=== PATIENT | male | born 1965 | race Caucasian/White ===

== ENCOUNTER → 2018-10-07 | Outpatient (CLI) | payer OTHER ==
[2018-10-07 13:07] LABS: BASO # 0.1 10^3/uL (0.0-0.2); BASO % 0.8 % (0.0-1.0); EOS # 0.2 10^3/uL (0.0-0.50); EOS % 2.6 % (0.0-3.0); HEMATOCRIT 44.1 % (42.0-52.0); HEMOGLOBIN 14.9 g/dl (13.5-17.5); LYMPH # 2.1 10^3/uL (1.5-4.5); LYMPH % 24.3 % (24.0-44.0); MEAN CORPUSCULAR HEMOGLOBIN 30.8 pg (27.0-33.0); MEAN CORPUSCULAR HGB CONC 33.8 g/dl (32.0-36.5); MEAN CORPUSCULAR VOLUME 91.3 fl (80.0-96.0); MONO # 0.6 10^3/uL (0.0-0.8); MONO % 7.4 % (0.0-5.0); NEUTROPHILS # 5.5 10^3/uL (1.8-7.7); NEUTROPHILS % 64.5 % (36.0-66.0); PLATELET COUNT, AUTOMATED 256 10^3/uL (150-450); RED BLOOD COUNT 4.83 10^6/uL (4.30-6.10); WHITE BLOOD COUNT 8.6 10^3/uL (4.0-10.0)
[2018-10-07 13:18] LABS: ALBUMIN 4.1 GM/DL (3.2-5.2); ALT/SGPT 29 U/L (12-78); BILIRUBIN,TOTAL 0.3 MG/DL (0.2-1.0); BLOOD UREA NITROGEN 17 MG/DL (7-18); CALCIUM LEVEL 8.7 MG/DL (8.5-10.1); CARBON DIOXIDE LEVEL 27 MEQ/L (21-32); CHLORIDE LEVEL 106 MEQ/L (98-107); CHOLESTEROL LEVEL 200 MG/DL (<200); CHOLESTEROL RISK RATIO 4.347 (<5); GLOMERULAR FILTRATION RATE > 60.0 (>56); GLUCOSE, FASTING 103 MG/DL (70-100); HDL CHOLESTEROL 46 MG/DL (>40); LDL CHOLESTEROL 134 MG/DL (<100); NON-HDL-C 154 MG/DL; POTASSIUM SERUM 4.4 MEQ/L (3.5-5.1); SODIUM LEVEL 139 MEQ/L (136-145); TOTAL PROTEIN 7.3 GM/DL (6.4-8.2); TRIGLYCERIDES LEVEL 100 MG/DL (<150)
[2018-10-07 14:06] LABS: HEMOGLOBIN A1c 6.1 %
== END ==
LOC: M WUC 09:05
PROVIDERS: ATTEND Nurse Practitioner Adult Health
DX: E78.00 Pure hypercholesterolemia, unspecified (principal)

== ENCOUNTER → 2019-08-22 | Outpatient (CLI) | payer OTHER ==
--- NOTE | 2019-08-23 07:05 | REP ---
HISTORY: Contusion left upper inner buttock region. Multiple ultrasonographic images over the clinically directed area of interest in the left inner upper buttock region shows an 8.8 x 2 x 10.7 cm size nearly completely anechoic structure, but with some low level echoes within it and seemingly between muscle fascial planes. This is somewhat compressible. IMPRESSION: Fluid collection, possible hematoma or developing hematoma as described above. Correlate clinically with appropriate followup. Electronically Signed by Armen Dempsey DO 08/23/2019 09:20 A
== END ==
LOC: M RAD 16:27
PROVIDERS: ATTEND Nurse Practitioner Adult Health
DX: S30.0XXD Contusion of lower back and pelvis, subsequent encounter (principal); X58.XXXD Exposure to other specified factors, subsequent encounter; Y92.9 Unspecified place or not applicable

== ENCOUNTER → 2020-02-02 | Outpatient (CLI) | payer OTHER ==
--- NOTE | 2020-02-03 03:16 | REP ---
Clinical: Lower back pain. Technique: AP, lateral, bilateral oblique and coned-down views of the lumbosacral spine. Findings: Mild chronic levoconvex scoliosis is suggested along with marginal primarily right-sided osteophytosis. Lateral view demonstrates normal alignment and no evidence for acute fracture / compression injury or subluxation. Moderate/early advanced multilevel degenerative changes include endplate sclerosis, disc space narrowing, osteophytosis and hypertrophic facet changes. Findings are most pronounced at L4-5, L5-S1, and L2-3. No obvious spondylolysis or spondylolisthesis. Impression: Moderate multilevel degenerative spondylosis. Electronically Signed by Gucci Johns MD 02/03/2020 03:09 A
--- NOTE | 2020-02-03 04:04 | REP ---
Clinical: Chest and back pain . Comparison: 12/24/2015 . Technique: PA and lateral. Findings: The mediastinum and cardiac silhouette are normal. The lung casas are clear and without acute consolidation, effusion, or pneumothorax. The skeletal structures are intact and normal. Impression: 1. No acute cardiopulmonary process. Electronically Signed by Gucci Johns MD 02/03/2020 03:55 A
--- NOTE | 2020-02-03 04:04 | REP ---
Clinical: thoracic back pain. Technique: AP, lateral, and swimmers views. Findings: Alignment and kyphosis is maintained. Vertebral bodies intact. No acute fracture / compression injury or subluxation. Scattered anterior/marginal bridging osteophytes noted. Impression: Essentially age-appropriate examination. Few scattered osteophytes noted. Electronically Signed by Gucci Johns MD 02/03/2020 03:57 A
== END ==
LOC: M RAD 10:33
PROVIDERS: ATTEND Nurse Practitioner Adult Health
DX: M47.817 Spondylosis without myelopathy or radiculopathy, lumbosacral region (principal); M25.78 Osteophyte, vertebrae; M51.37 Other intervertebral disc degeneration, lumbosacral region; R07.89 Other chest pain; G57.12 Meralgia paresthetica, left lower limb

== ENCOUNTER 2020-05-17 08:40 | Emergency (ER) | payer OTHER ==
[2020-05-18] MEDS ORDERED: GABA-843 PO (20:07)
[2020-05-18] MEDS ORDERED: NAPR-855 PO (20:07)
== END 2020-05-17 10:59 | disposition home or self-care (01) ==
LOC: M ED 08:40
DX: S93.401A Sprain of unspecified ligament of right ankle, initial encounter (principal); W22.8XXA Striking against or struck by other objects, initial encounter; Y92.89 Other specified places as the place of occurrence of the external cause; Y93.9 Activity, unspecified; Y99.9 Unspecified external cause status; E11.9 Type 2 diabetes mellitus without complications; M54.5 Low back pain; F17.200 Nicotine dependence, unspecified, uncomplicated; Z79.899 Other long term (current) drug therapy

== ENCOUNTER 2020-05-18 16:45 | Inpatient (IN) | payer OTHER ==
[~2020-05-18] VITALS: Ht 195.6 cm; Wt 113.0 kg
[~2020-05-18 16:45] MED LIST: ACETAMINOPHEN 500 MG TAB As Ordered ONE; VANCOMYCIN 1000MG/20ML VIAL As Ordered ONE
[2020-05-18] MEDS ORDERED: ONDANSETRON 4MG/2ML VIAL IV PRN (20:00)
[2020-05-18] MEDS ORDERED: GABA-843 PO ×2 (20:07)
[2020-05-18] MEDS ORDERED: NAPR-855 PO (20:07)
[2020-05-18] MEDS ORDERED: cefTRIAXone SOD 2 GM in D5W MINI-BAG PLUS 50 ML IV SCH (21:00)
[2020-05-18] MEDS: ACETAMINOPHEN 500 MG TAB PO PRN (21:11)
[2020-05-18] MEDS: NS 1,000 ML IV SCH (21:11)
[2020-05-18] MEDS: GABAPENTIN 300 MG CAP PO SCH (21:12)
[2020-05-18 22:00] VITALS: BP 128/74
[2020-05-19] MEDS: VANCOMYCIN HCL 1,000 MG, VIAL MATE ADAPTER 1 EACH in D5W 250 ML IV SCH ×2 (04:15→15:46)
[2020-05-19 06:00] VITALS: BP 125/76
[2020-05-19] MEDS: NS 1,000 ML IV SCH ×2 (06:00→19:30)
[2020-05-19 07:02] LABS: BASO % 0.2 % (0.0-1.0); EOS # 0.1 10^3/uL (0.0-0.5); EOS % 0.3 % (0.0-3.0); HEMATOCRIT 37.1 % (42.0-52.0); HEMOGLOBIN 12.5 g/dl (13.5-17.5); LYMPH # 1.1 10^3/uL (1.5-5.0); LYMPH % 4.9 % (24.0-44.0); MEAN CORPUSCULAR HEMOGLOBIN 31.7 pg (27.0-33.0); MEAN CORPUSCULAR HGB CONC 33.7 g/dl (32.0-36.5); MEAN CORPUSCULAR VOLUME 94.2 fl (80.0-96.0); MONO # 1.4 10^3/uL (0.0-0.8); NEUTROPHILS # 20.3 10^3/uL (1.5-8.5); NEUTROPHILS % 87.4 % (36.0-66.0); PLATELET COUNT, AUTOMATED 182 10^3/uL (150-450); RED BLOOD COUNT 3.94 10^6/uL (4.30-6.10); WHITE BLOOD COUNT 23.2 10^3/uL (4.0-10.0)
[2020-05-19 07:27] LABS: BLOOD UREA NITROGEN 14 MG/DL (7-18); CALCIUM LEVEL 8.3 MG/DL (8.5-10.1); CARBON DIOXIDE LEVEL 26 MEQ/L (21-32); CHLORIDE LEVEL 103 MEQ/L (98-107); CREATININE FOR GFR 1.03 MG/DL (0.70-1.30); GLOMERULAR FILTRATION RATE > 60.0 (>56); GLUCOSE, FASTING 132 MG/DL (70-100); POTASSIUM SERUM 3.7 MEQ/L (3.5-5.1); SODIUM LEVEL 135 MEQ/L (136-145)
[2020-05-19] MEDS: ENOXAPARIN 40MG/0.4ML SYRINGE (J1650 PER 10MG) SC SCH (08:28)
[2020-05-19] MEDS: GABAPENTIN 300 MG CAP PO SCH ×2 (08:28→19:30)
[2020-05-19] MEDS: KETOROLAC 30 MG/ML 1ML VIAL IV PRN ×2 (08:29→17:53)
[2020-05-19 14:00] VITALS: BP 136/83
[2020-05-19] MEDS: ACETAMINOPHEN 500 MG TAB PO PRN (15:46)
--- NOTE | 2020-05-19 16:16 | IPNPDOC ---
Subjective Date Seen The patient was seen on 05/19/20. Subjective Chief Complaint/HPI right leg pain General: Reports: Normal Appetite; Denies: Chills, Night Sweats, Fatigue, Malaise Constitutional: Denies: Chills, Fever, Night Sweats Eyes: Denies: Pain, Vision change ENT: Denies: Head Aches, Ear Pain, Dysphagia Skin: Denies: Rash, Lesions, Breakdown Pulmonary: Denies: Dyspnea, Cough Cardiovascular: Denies: Chest Pain, Palpitations, Orthopnea, Paroxysmal Noc. Dyspnea, Lt Headedness Gastrointestinal: Denies: Nausea, Vomiting, Abdominal Pain, Diarrhea, Constipation Genitourinary: Denies: Dysuria, Frequency, Incontinence, Retention Hematologic: Denies: Bruising, Bleeding Excessively Musculoskeletal: Denies: Neck Pain, Back Pain, Joint Pain, Muscle Pain, Spasms Neurological: Denies: Weakness, Numbness, Change in speech, Confusion Psych: Reports: Mood Normal; Denies: Depression, Memory Issues Objective Physical Examination General Exam: Positive: Alert, No Acute Distress Eye Exam: Positive: PERRLA, Conjunctiva & lids normal, EOMI; Negative: Sclera icteric ENT Exam: Positive: Atraumatic, Mucous membr. moist/pink, Pharynx Normal Neck Exam: Positive: Supple; Negative: JVD, thyromegaly Chest Exam: Positive: Clear to auscultation, Normal air movement Heart Exam: Positive: Rate Normal, Regular Rhythm, Normal S1, Normal S2; Negative: Murmurs, Rubs Telemetry: Positive: No significant arrhythmia Abdomen Exam: Positive: Normal bowel sounds, Soft; Negative: Tenderness, Hepatospenomegaly Male Exam: Positive: Normal Genital Exam Extremity Exam: Positive: Normal pulses; Negative: Clubbing, Cyanosis, Edema Skin Exam: Positive: Nl turgor and temperature, Other skin issue (right leg cellulitus examined) Neuro Exam: Positive: Normal Gait, Normal Speech, Cranial Nerves 3-12 NL, Reflexes 2+ Psych Exam: Positive: Mental status NL, Mood NL, Oriented x 3 Assessment /Plan Assessment 1. Right Leg Cellulitis - non purulent. WBC elevated. will draw blood cultures. - transitioned to PO clindamycin. will follow up on AM WBCs for improvement Plan/VTE VTE Prophylaxis Ordered?: Yes VS, I&O, 24H, Fishbone Vital Signs/I&O Vital Signs Date Time Temp Pulse Resp B/P (MAP) Pulse Ox O2 Delivery O2 Flow Rate FiO2 05/19/20 06:00 99.4 95 18 125/76 (92) 98 Room Air I&O- Last 24 Hours up to 6 AM 05/19/20 06:00 Intake Total 0 ml Output Total 0 ml Balance 0 ml Laboratory Data 24H LABS Laboratory Tests 2 05/19/20 06:26: Anion Gap 6L, Glomerular Filtration Rate > 60.0, Calcium Level 8.3L 05/19/20 06:31: Immature Granulocyte % (Auto) 1.2, Neutrophils (%) (Auto) 87.4H, Lymphocytes (%) (Auto) 4.9L, Monocytes (%) (Auto) 6.0H, Eosinophils (%) (Auto) 0.3, Basophils (%) (Auto) 0.2, Neutrophils # (Auto) 20.3H, Lymphocytes # (Auto) 1.1L, Monocytes # (Auto) 1.4H, Eosinophils # (Auto) 0.1, Basophils # (Auto) 0.0, Nucleated Red Blood Cells % (auto) 0.0 05/19/20 09:24: Methicillin-Resist S.aureus DNA PCR NOT DETECTED CBC/BMP Laboratory Tests 05/19/20 06:26 05/19/20 06:31 DEREK PEARSON DO May 19, 2020 16:16
[2020-05-19] MEDS: CLINDAMYCIN 150MG CAPSULE PO SCH (19:30)
[2020-05-19 22:00] VITALS: BP 133/81
[2020-05-20] MEDS: NS 1,000 ML IV SCH ×2 (02:00→11:57)
[2020-05-20] MEDS: KETOROLAC 30 MG/ML 1ML VIAL IV PRN (05:43)
[2020-05-20 06:00] VITALS: BP 135/80
[2020-05-20 07:22] LABS: BASO % 0.2 % (0.0-1.0); EOS # 0.1 10^3/uL (0.0-0.5); EOS % 0.7 % (0.0-3.0); HEMATOCRIT 33.7 % (42.0-52.0); HEMOGLOBIN 11.4 g/dl (13.5-17.5); LYMPH # 1.1 10^3/uL (1.5-5.0); LYMPH % 6.8 % (24.0-44.0); MEAN CORPUSCULAR HEMOGLOBIN 32.1 pg (27.0-33.0); MEAN CORPUSCULAR HGB CONC 33.8 g/dl (32.0-36.5); MEAN CORPUSCULAR VOLUME 94.9 fl (80.0-96.0); MONO # 1.1 10^3/uL (0.0-0.8); NEUTROPHILS # 13.3 10^3/uL (1.5-8.5); NEUTROPHILS % 84.1 % (36.0-66.0); PLATELET COUNT, AUTOMATED 174 10^3/uL (150-450); RED BLOOD COUNT 3.55 10^6/uL (4.30-6.10); WHITE BLOOD COUNT 15.8 10^3/uL (4.0-10.0)
[2020-05-20 08:03] LABS: BLOOD UREA NITROGEN 14 MG/DL (7-18); CARBON DIOXIDE LEVEL 25 MEQ/L (21-32); CHLORIDE LEVEL 106 MEQ/L (98-107); CREATININE FOR GFR 0.92 MG/DL (0.70-1.30); GLOMERULAR FILTRATION RATE > 60.0 (>56); GLUCOSE, FASTING 124 MG/DL (70-100); POTASSIUM SERUM 3.6 MEQ/L (3.5-5.1); SODIUM LEVEL 136 MEQ/L (136-145)
[2020-05-20] MEDS ORDERED: IBUPROFEN 800 MG TAB PO PRN (09:00)
[2020-05-20] MEDS: ENOXAPARIN 40MG/0.4ML SYRINGE (J1650 PER 10MG) SC SCH (09:55)
[2020-05-20] MEDS: CLINDAMYCIN 150MG CAPSULE PO SCH (09:55)
[2020-05-20] MEDS: GABAPENTIN 300 MG CAP PO SCH (09:55)
[2020-05-20] MEDS ORDERED: CLIN150C14 PO (11:28)
[2020-05-20] MEDS ORDERED: IBUP80TA PO (11:28)
--- NOTE | 2020-05-20 12:44 | DS.PDOC ---
Discharge Summary General Date of Admission May 18, 2020 at 16:45 Date of Discharge 05/20/20 Discharge Summary PROCEDURES PERFORMED DURING STAY: none ADMITTING DIAGNOSES: 1. Right leg cellulitis DISCHARGE DIAGNOSES: 1. Right leg cellulitis COMPLICATIONS/CHIEF COMPLAINT: R Leg Cellulitis. HISTORY OF PRESENT ILLNESS: 55 y.o M presented with a cc of right leg pain after sustaining occupational associated injury 0 he noted some construction material might have caused minor tauma. He reported having a similar injury in the past and was treated with iv antibiotics. He denied any fevers or chills but did report tenderness to touch at infection site. HOSPITAL COURSE: US obtained of the right leg with no clots. Given, high white count with a source of infection, patient was treated with IV antibiotics and was transitioned to PO clindamycin on 05/19/2020. WBC trended down from 23 to 15.8. He reports some pain but it tolerated with toradol. On discharge, recommed to continue clindamycin for 10 days with ibuprofen 800mg PRN for pain. Recombed following up with PCP with 1-2weeks. DISCHARGE MEDICATIONS: Please see below. ALLERGIES: Please see below. PHYSICAL EXAMINATION ON DISCHARGE: VITAL SIGNS: Please see below. General Exam: Positive: Alert, No Acute Distress Eye Exam: Positive: PERRLA, Conjunctiva & lids normal, EOMI; Negative: Sclera icteric ENT Exam: Positive: Atraumatic, Mucous membr. moist/pink, Pharynx Normal Neck Exam: Positive: Supple; Negative: JVD, thyromegaly Chest Exam: Positive: Clear to auscultation, Normal air movement Heart Exam: Positive: Rate Normal, Regular Rhythm, Normal S1, Normal S2; Negative: Murmurs, Rubs Telemetry: Positive: No significant arrhythmia Abdomen Exam: Positive: Normal bowel sounds, Soft; Negative: Tenderness, Male Exam: Positive: Normal Genital Exam Extremity Exam: no gross abnormalities Skin Exam: Positive: Nl turgor and temperature, Other skin issue (right leg cellulites- improving) Neuro Exam: no focal defecits Psych Exam: Mood NL LABORATORY DATA: Please see below. IMAGING: US right leg negative for DVT PROGNOSIS: stable ACTIVITY: as tolerated DIET: heart healthy DISCHARGE PLAN: reviwed DISPOSITION: . DISCHARGE INSTRUCTIONS: 1. clindamycin for 10 more days; follow up with PCP within 1-2weeks ITEMS TO FOLLOWUP ON ON OUTPATIENT: 1. f/u resolution of cellulites DISCHARGE CONDITION: stable TIME SPENT ON DISCHARGE: Greater than 15 minutes. Vital Signs/I&Os Vital Signs Date Time Temp Pulse Resp B/P (MAP) Pulse Ox O2 Delivery O2 Flow Rate FiO2 05/20/20 06:00 99.6 95 18 135/80 (98) 98 Room Air I&O- Last 24 Hours up to 6 AM 05/20/20 06:00 Intake Total 2670 ml Output Total 0 ml Balance 2670 ml Laboratory Data Labs 24H Laboratory Tests 2 05/20/20 06:00: Immature Granulocyte % (Auto) 1.2, Neutrophils (%) (Auto) 84.1H, Lymphocytes (%) (Auto) 6.8L, Monocytes (%) (Auto) 7.0H, Eosinophils (%) (Auto) 0.7, Basophils (%) (Auto) 0.2, Neutrophils # (Auto) 13.3H, Lymphocytes # (Auto) 1.1L, Monocytes # (Auto) 1.1H, Eosinophils # (Auto) 0.1, Basophils # (Auto) 0.0, Nucleated Red Blood Cells % (auto) 0.0 05/20/20 06:57: Anion Gap 5L, Glomerular Filtration Rate > 60.0, Calcium Level 8.0L CBC/BMP Laboratory Tests 05/20/20 06:00 05/20/20 06:57 Discharge Medications Scheduled Clindamycin Hcl (Clindamycin HCl) 150 Mg Capsule, 450 MG PO TID Scheduled PRN Gabapentin (Gabapentin) 300 Mg Capsule, 300 MG PO DAILY PRN for PAIN, (Reported) Ibuprofen (Ibuprofen) 800 Mg Tablet, 800 MG PO Q6HP PRN for MODERATE PAIN (PS 5- 7) Allergies Coded Allergies: No Known Allergies (Unverified , 05/18/20) DEREK PEARSON DO May 20, 2020 12:44
[2020-05-22 20:05] LABS: BLOOD UREA NITROGEN 15 MG/DL (7-18); CALCIUM LEVEL 8.7 MG/DL (8.5-10.1); CARBON DIOXIDE LEVEL 29 MEQ/L (21-32); CHLORIDE LEVEL 101 MEQ/L (98-107); CREATININE FOR GFR 1.27 MG/DL (0.70-1.30); GLOMERULAR FILTRATION RATE > 60.0 (>56); GLUCOSE, FASTING 137 MG/DL (70-100); SODIUM LEVEL 135 MEQ/L (136-145)
[2020-06-28 08:24] LABS: BASO # 0.1 10^3/uL (0.0-0.2); BASO % 0.2 % (0.0-1.0); EOS % 0.1 % (0.0-3.0); HEMATOCRIT 40.4 % (42.0-52.0); HEMOGLOBIN 13.6 g/dl (13.5-17.5); LYMPH # 1.1 10^3/uL (1.5-5.0); LYMPH % 3.8 % (24.0-44.0); MEAN CORPUSCULAR HEMOGLOBIN 32.1 pg (27.0-33.0); MEAN CORPUSCULAR HGB CONC 33.7 g/dl (32.0-36.5); MEAN CORPUSCULAR VOLUME 95.3 fl (80.0-96.0); MONO # 1.6 10^3/uL (0.0-0.8); MONO % 5.7 % (0.0-5.0); NEUTROPHILS # 25.4 10^3/uL (1.5-8.5); NEUTROPHILS % 89.1 % (36.0-66.0); PLATELET COUNT, AUTOMATED 201 10^3/uL (150-450); RED BLOOD COUNT 4.24 10^6/uL (4.30-6.10); WHITE BLOOD COUNT 28.5 10^3/uL (4.0-10.0)
[2020-06-28 09:33] LABS: INR 1.1; PARTIAL THROMBOPLASTIN TIME 37.7 SECONDS (24.2-38.5); PROTHROMBIN TIME 14.4 SECONDS (12.5-14.3)
== END 2020-05-20 13:16 | disposition home or self-care (01) | DRG 383 ==
LOC: EEVIPCON 16:45 → M MS5PR 16:45
PROVIDERS: ADMIT Internal Medicine Nephrology; ATTEND Internal Medicine
DX: L03.115 Cellulitis of right lower limb (principal); F17.200 Nicotine dependence, unspecified, uncomplicated

== ENCOUNTER → 2020-06-04 | Outpatient (CLI) | payer OTHER ==
[~2020-06-04] MED LIST changes: -ACETAMINOPHEN 500 MG TAB As Ordered ONE; +BACT800T5 PO; +CLIN150C14 PO; +GABA-843 PO; +IBUP80TA PO; +NAPR-855 PO; +SILV50CR; +SULF1TAB93; -VANCOMYCIN 1000MG/20ML VIAL As Ordered ONE
[2020-06-04 09:28] LABS: BASO # 0.1 10^3/uL (0.0-0.2); BASO % 0.7 % (0.0-1.0); EOS # 0.3 10^3/uL (0.0-0.5); EOS % 3.2 % (0.0-3.0); HEMATOCRIT 37.9 % (42.0-52.0); HEMOGLOBIN 12.6 g/dl (13.5-17.5); LYMPH % 23.5 % (24.0-44.0); MEAN CORPUSCULAR HEMOGLOBIN 31.6 pg (27.0-33.0); MEAN CORPUSCULAR HGB CONC 33.2 g/dl (32.0-36.5); MONO # 0.7 10^3/uL (0.0-0.8); MONO % 7.6 % (0.0-5.0); NEUTROPHILS # 5.5 10^3/uL (1.5-8.5); NEUTROPHILS % 64.6 % (36.0-66.0); PLATELET COUNT, AUTOMATED 389 10^3/uL (150-450); RED BLOOD COUNT 3.99 10^6/uL (4.30-6.10); WHITE BLOOD COUNT 8.6 10^3/uL (4.0-10.0)
[2020-06-04 10:05] LABS: ERYTHROCYTE SEDIMENTATION RATE 43 mm/hr (0-20)
== END ==
LOC: M LAB 08:22
PROVIDERS: ATTEND Physician Assistant Surgical
DX: L03.115 Cellulitis of right lower limb (principal)

== ENCOUNTER 2020-06-12 12:37 | Emergency (ER) | payer OTHER ==
[~2020-06-12] VITALS: Ht 195.6 cm; Wt 106.6 kg
[~2020-06-12 12:37] MED LIST changes: -BACT800T5 PO; -SILV50CR; -SULF1TAB93
[2020-06-12] MEDS ORDERED: SILV50CR (12:45)
[2020-06-12] MEDS ORDERED: SULF1TAB93 (12:45)
[2020-06-12] MEDS ORDERED: BACT800T5 PO (14:37)
[2020-06-12 15:24] VITALS: BP 129/78
== END 2020-06-12 15:25 | disposition home or self-care (01) ==
LOC: M ED 12:37
DX: S91.001A Unspecified open wound, right ankle, initial encounter (principal); X58.XXXA Exposure to other specified factors, initial encounter; Y92.9 Unspecified place or not applicable; Y93.9 Activity, unspecified; Y99.9 Unspecified external cause status

== ENCOUNTER → 2020-08-05 | Outpatient (CLI) | payer OTHER ==
[~2020-08-05] MED LIST changes: +BACT800T5 PO; +SILV50CR; +SULF1TAB93
== END ==
LOC: M LABSMTC 09:34
PROVIDERS: ATTEND Anesthesiology
DX: Z01.812 Encounter for preprocedural laboratory examination (principal); Z20.828 Contact with and (suspected) exposure to other viral communicable diseases
CPT/HCPCS: C9803; U0003

== ENCOUNTER 2020-08-10 09:13 | Day surgery (SDC) | payer OTHER ==
[~2020-08-10] VITALS: Ht 195.6 cm; Wt 107.5 kg
[~2020-08-10 09:13] MED LIST changes: +NS 1,000 ML IV ONE
[2020-08-10] MEDS ORDERED: LIDOCAINE 2% 100MG/5ML SDV (FOR ANES.) As Ordered ONE (09:54)
[2020-08-10] MEDS ORDERED: propofoL 200 MG/20 ML VIAL As Ordered ONE (09:54)
--- NOTE | 2020-08-10 10:41 | ROOR ---
Patient Name: Frederick Perez Procedure Date: 08/10/2020 10:08 AM Date of : 1965 Age: 55 [facility] Note Status: Finalized Procedure: Colonoscopy Indications: Screening for colorectal malignant neoplasm, Family history of colon cancer in a distant relative Providers: Adithya ANDERSON MD Referring MD: SHERIF MERRITT NP Requesting Provider: Medicines: Monitored Anesthesia Care Complications: No immediate complications. Procedure: Pre-Anesthesia Assessment: - The heart rate, respiratory rate, oxygen saturations, blood pressure, adequacy of pulmonary ventilation, and response to care were monitored throughout the procedure. The Colonoscope was introduced through the anus and advanced to the terminal ileum, with identification of the appendiceal orifice and IC valve. The colonoscopy was performed without difficulty. The patient tolerated the procedure well. The quality of the bowel preparation was good. Findings: The perianal and digital rectal examinations were normal. Five sessile polyps were found in the sigmoid colon and hepatic flexure. The polyps were diminutive in size. These polyps were removed with a cold snare. Resection and retrieval were complete. Mild sigmoid diverticulosis and small internal hemorrhoids. The exam was otherwise without abnormality on direct and retroflexion views. Retroflexion in the right colon was performed. Impression: - Five diminutive polyps in the sigmoid colon and at the hepatic flexure, removed with a cold snare. Resected and retrieved. - Mild sigmoid diverticulosis and small internal hemorrhoids. - The examination was otherwise normal on direct and retroflexion views. Recommendation: - Repeat colonoscopy in 3 years for surveillance. Adithya Anderson MD Adithya ANDERSON MD 08/10/2020 10:40:49 AM Electronically signed by Adithya ANDERSON MD Number of Addenda: 0 Note Initiated On: 08/10/2020 10:08 AM Estimated Blood Loss: Estimated blood loss: none.
[2020-08-10 11:00] VITALS: BP 141/83
== END 2020-08-10 11:08 | disposition home or self-care (01) ==
LOC: M OPP 09:13
PROVIDERS: ATTEND Internal Medicine Gastroenterology
DX: Z12.11 Encounter for screening for malignant neoplasm of colon (principal); D12.3 Benign neoplasm of transverse colon; D12.5 Benign neoplasm of sigmoid colon; K57.30 Diverticulosis of large intestine without perforation or abscess without bleeding; K64.8 Other hemorrhoids; Z80.0 Family history of malignant neoplasm of digestive organs

== ENCOUNTER → 2022-03-03 | Outpatient (CLI) | payer OTHER ==
[~2022-03-03] MED LIST changes: +BACTDSTA; -CLIN150C14 PO; +CLIN150C17 PO; +GABA-282 PO; -GABA-843 PO; -NS 1,000 ML IV ONE; -SULF1TAB93
== END ==
LOC: M RAD 06:56
PROVIDERS: ATTEND Nurse Practitioner Family
DX: R91.8 Other nonspecific abnormal finding of lung field (principal); Z87.891 Personal history of nicotine dependence

== ENCOUNTER → 2022-05-19 | Outpatient (REF) | payer OTHER | LOC: M SFHCDERM 17:15 | PROVIDERS: ATTEND Nurse Practitioner Family | DX: C44.310 Basal cell carcinoma of skin of unspecified parts of face (principal) ==

== ENCOUNTER → 2022-06-13 | Outpatient (CLI) | payer OTHER ==
[2022-06-13 10:01] LABS: BASO # 0.1 10^3/uL (0.0-0.2); BASO % 0.7 % (0.0-1.0); EOS # 0.2 10^3/uL (0.0-0.5); EOS % 2.4 % (0.0-3.0); HEMATOCRIT 40.4 % (42.0-52.0); HEMOGLOBIN 13.5 g/dl (13.5-17.5); LYMPH # 1.9 10^3/uL (1.5-5.0); LYMPH % 22.4 % (24.0-44.0); MEAN CORPUSCULAR HEMOGLOBIN 31.1 pg (27.0-33.0); MEAN CORPUSCULAR HGB CONC 33.4 g/dl (32.0-36.5); MEAN CORPUSCULAR VOLUME 93.1 fl (80.0-96.0); MONO # 0.5 10^3/uL (0.0-0.8); MONO % 6.5 % (2.0-8.0); NEUTROPHILS # 5.6 10^3/uL (1.5-8.5); NEUTROPHILS % 67.8 % (36.0-66.0); PLATELET COUNT, AUTOMATED 242 10^3/uL (150-450); RED BLOOD COUNT 4.34 10^6/uL (4.30-6.10); WHITE BLOOD COUNT 8.3 10^3/uL (4.0-10.0)
[2022-06-13 10:38] LABS: ALBUMIN 3.8 GM/DL (3.2-5.2); ALT/SGPT 22 U/L (12-78); BILIRUBIN,DIRECT 0.1 MG/DL (0.0-0.2); BILIRUBIN,TOTAL 0.5 MG/DL (0.2-1.0); BLOOD UREA NITROGEN 18 MG/DL (7-18); CALCIUM LEVEL 8.9 MG/DL (8.5-10.1); CARBON DIOXIDE LEVEL 25 MEQ/L (21-32); CHLORIDE LEVEL 104 MEQ/L (98-107); CREATININE FOR GFR 1.06 MG/DL (0.70-1.30); GLOMERULAR FILTRATION RATE > 60.0 (>56); GLUCOSE, FASTING 152 MG/DL (70-100); PHOSPHORUS LEVEL 2.7 MG/DL (2.5-4.9); POTASSIUM SERUM 3.9 MEQ/L (3.5-5.1); SODIUM LEVEL 134 MEQ/L (136-145)
== END ==
LOC: M WUC 08:16
PROVIDERS: ATTEND Podiatrist Foot & Ankle Surgery
DX: B35.1 Tinea unguium (principal)

== ENCOUNTER → 2022-08-23 | Outpatient (REF) | payer OTHER ==
[2022-08-23 13:50] LABS: BASO % 0.3 % (0.0-1.0); EOS # 0.2 10^3/uL (0.0-0.5); EOS % 1.1 % (0.0-3.0); HEMOGLOBIN 13.7 g/dl (13.5-17.5); LYMPH # 3.3 10^3/uL (1.5-5.0); LYMPH % 24.5 % (24.0-44.0); MEAN CORPUSCULAR HEMOGLOBIN 30.9 pg (27.0-33.0); MEAN CORPUSCULAR HGB CONC 32.6 g/dl (32.0-36.5); MEAN CORPUSCULAR VOLUME 94.6 fl (80.0-96.0); MONO # 0.9 10^3/uL (0.0-0.8); MONO % 6.8 % (2.0-8.0); NEUTROPHILS % 66.4 % (36.0-66.0); PLATELET COUNT, AUTOMATED 285 10^3/uL (150-450); RED BLOOD COUNT 4.44 10^6/uL (4.30-6.10); WHITE BLOOD COUNT 13.5 10^3/uL (4.0-10.0)
[2022-08-23 14:29] LABS: ALBUMIN 3.9 G/DL (3.2-5.2); ALT/SGPT 30 U/L (7.0-40); BILIRUBIN,TOTAL 0.3 MG/DL (0.3-1.2); BLOOD UREA NITROGEN 21 MG/DL (9-23); CALCIUM LEVEL 8.9 MG/DL (8.5-10.1); CARBON DIOXIDE LEVEL 30 MMOL/L (20-31); CHLORIDE LEVEL 102 MMOL/L (98-107); CHOLESTEROL LEVEL 172 MG/DL (<200); CHOLESTEROL RISK RATIO 3.17 (<5); GLOMERULAR FILTRATION RATE > 60.0 (>56); GLUCOSE, FASTING 111 MG/DL (60-100); HDL CHOLESTEROL 54.1 MG/DL (>40); LDL CHOLESTEROL 97.3 MG/DL (<100); NON-HDL-C 118 MG/DL; POTASSIUM SERUM 4.2 MMOL/L (3.5-5.1); SODIUM LEVEL 139 MMOL/L (136-145); THYROID STIMULATING HORMONE 1.018 uIU/ML (0.55-4.78); TOTAL PROTEIN 6.4 G/DL (5.7-8.2); TRIGLYCERIDES LEVEL 103 MG/DL (<150)
[2022-08-23 15:13] LABS: HEMOGLOBIN A1c 5.7 % (4.0-6.0)
== END ==
LOC: M WUC 08:54
PROVIDERS: ATTEND Nurse Practitioner Family
DX: R73.9 Hyperglycemia, unspecified (principal); E78.00 Pure hypercholesterolemia, unspecified; Z79.899 Other long term (current) drug therapy

== ENCOUNTER → 2023-04-30 | Outpatient (CLI) | payer OTHER ==
[~2023-04-30] MED LIST changes: +ISOVUE-370 76% 100ML VIAL As Ordered ONE
== END ==
LOC: M RAD 07:35
PROVIDERS: ATTEND Registered Nurse
DX: R91.1 Solitary pulmonary nodule (principal)
CPT/HCPCS: 71260; Q9967

== ENCOUNTER 2023-12-27 06:43 | Day surgery (SDC) | payer OTHER ==
[~2023-12-27] VITALS: Ht 195.6 cm; Wt 117.9 kg
[~2023-12-27 06:43] MED LIST changes: +EZET10TA21 PO; -ISOVUE-370 76% 100ML VIAL As Ordered ONE; +METF-839 PO; +VENTAER INH
[2023-12-27] MEDS ORDERED: propofoL 200 MG/20 ML VIAL As Ordered ONE (07:28)
[2023-12-27] MEDS ORDERED: LIDOCAINE 2% MDV 20ML VIAL As Ordered ONE (07:29)
[2023-12-27] MEDS: NS 1,000 ML IV ONE (07:32)
[2023-12-27 09:09] VITALS: BP 140/85; TEMP 97.2; O2SAT 97
== END 2023-12-27 09:13 | disposition home or self-care (01) ==
LOC: M OPP 06:43
PROVIDERS: ATTEND Internal Medicine Gastroenterology
DX: Z12.11 Encounter for screening for malignant neoplasm of colon (principal); Z86.010 Personal history of colon polyps; Z80.0 Family history of malignant neoplasm of digestive organs; K63.5 Polyp of colon; K64.8 Other hemorrhoids; E11.9 Type 2 diabetes mellitus without complications; J44.9 Chronic obstructive pulmonary disease, unspecified; Z79.51 Long term (current) use of inhaled steroids; Z79.84 Long term (current) use of oral hypoglycemic drugs; Z79.899 Other long term (current) drug therapy; Z87.891 Personal history of nicotine dependence

== ENCOUNTER → 2024-01-10 | Outpatient (CLI) | payer OTHER | LOC: M PLAIMG 06:38 | PROVIDERS: ATTEND Orthopaedic Surgery | DX: M54.12 Radiculopathy, cervical region (principal); M48.02 Spinal stenosis, cervical region; M47.812 Spondylosis without myelopathy or radiculopathy, cervical region ==

== ENCOUNTER → 2024-04-30 | Outpatient (CLI) | payer OTHER | LOC: M RAD 08:59 | PROVIDERS: ATTEND Internal Medicine Critical Care Medicine | DX: R91.8 Other nonspecific abnormal finding of lung field (principal) ==

== ENCOUNTER 2024-05-19 09:20 | Emergency (ER) | payer OTHER ==
[~2024-05-19] VITALS: Ht 195.6 cm; Wt 107.9 kg
[2024-05-19] MEDS ORDERED: STIO1AER (09:31)
[2024-05-19] MEDS: LIDOCAINE 5% (LIDODERM) PATCH TD ONE (10:09)
[2024-05-19] MEDS: KETOROLAC 30 MG/ML 1ML VIAL IM ONE (10:10)
[2024-05-19] MEDS ORDERED: NAPR-837 PO (12:05)
[2024-05-19] MEDS ORDERED: LIDO5DIS41 TD (12:05)
[2024-05-19 12:18] VITALS: BP 169/86; TEMP 97; O2SAT 98
== END 2024-05-19 12:22 | disposition home or self-care (01) ==
LOC: M ED 09:20
DX: M51.37 Other intervertebral disc degeneration, lumbosacral region (principal); E11.9 Type 2 diabetes mellitus without complications; E78.00 Pure hypercholesterolemia, unspecified; J45.909 Unspecified asthma, uncomplicated; Z87.891 Personal history of nicotine dependence; Z79.899 Other long term (current) drug therapy; Z88.8 Allergy status to other drugs, medicaments and biological substances
CPT/HCPCS: 72110; 96372; 99283; J1885

== ENCOUNTER 2024-11-18 10:51 | Emergency (ER) | payer OTHER ==
[~2024-11-18] VITALS: Ht 195.6 cm; Wt 122.9 kg
[~2024-11-18 10:51] MED LIST changes: +GABA-1172 PO; -GABA-282 PO; +LIDO5DIS41 TD; +NAPR-837 PO; +STIO1AER
[2024-11-18] MEDS ORDERED: BENA25CA4 PO (11:32)
[2024-11-18] MEDS ORDERED: GABA-1171 (11:32)
[2024-11-18] MEDS: methylPREDNISolone 125MG 2ML VIAL IV ONE (16:29)
[2024-11-18] MEDS: FAMOTIDINE IV BAG 20 MG in IV 1 EA IV ONE (16:30)
[2024-11-18] MEDS: CETIRIZINE (ZyrTEC) 10 MG TAB PO ONE (16:30)
[2024-11-18] MEDS ORDERED: PRED10TA2 PO (17:26)
[2024-11-18 17:44] VITALS: BP 164/80; TEMP 97.2; O2SAT 99
== END 2024-11-18 17:45 | disposition home or self-care (01) ==
LOC: M ED 10:51
DX: T78.40XA Allergy, unspecified, initial encounter (principal); J44.9 Chronic obstructive pulmonary disease, unspecified; Z79.899 Other long term (current) drug therapy; Z88.8 Allergy status to other drugs, medicaments and biological substances
CPT/HCPCS: 99284; J2919; S0028

== ENCOUNTER 2024-11-30 22:47 | Emergency (ER) | payer OTHER ==
[~2024-11-30] VITALS: Ht 195.6 cm; Wt 120.5 kg
[~2024-11-30 22:47] MED LIST changes: +BENA25CA4 PO; +GABA-1171; +PRED10TA2 PO
[2024-11-30 22:51] VITALS: BP 184/91; TEMP 97.3; O2SAT 97
[2024-11-30] MEDS: MORPHINE 2 MG/ML 1ML VIAL IM ONE (23:32)
[2024-12-01] MEDS ORDERED: OXYC-517 PO (00:53)
[2024-12-01] MEDS ORDERED: LIDO5DIS41 TD (00:53)
[2024-12-01] MEDS: PERCOCET 5MG/325MG TAB PO ONE (01:16)
[2024-12-01] MEDS: LIDOCAINE 5% (LIDODERM) PATCH TD ONE (01:16)
== END 2024-12-01 01:37 | disposition home or self-care (01) ==
LOC: M ED 22:47
DX: S22.31XA Fracture of one rib, right side, initial encounter for closed fracture (principal); W19.XXXA Unspecified fall, initial encounter; Y92.9 Unspecified place or not applicable; Y93.9 Activity, unspecified; Y99.0 Civilian activity done for income or pay; J44.9 Chronic obstructive pulmonary disease, unspecified; Z87.891 Personal history of nicotine dependence; Z79.899 Other long term (current) drug therapy; Z88.8 Allergy status to other drugs, medicaments and biological substances

== ENCOUNTER → 2025-01-08 | Outpatient (REF) | payer OTHER ==
[~2025-01-08] MED LIST changes: +OXYC-517 PO
[2025-01-08 15:10] LABS: HEMATOCRIT 41.7 % (42.0-52.0); HEMOGLOBIN 14.2 g/dl (13.5-17.5); MEAN CORPUSCULAR HEMOGLOBIN 30.9 pg (27.0-33.0); MEAN CORPUSCULAR HGB CONC 34.1 g/dl (32.0-36.5); MEAN CORPUSCULAR VOLUME 90.7 fl (80.0-96.0); PLATELET COUNT, AUTOMATED 256 10^3/uL (150-450); WHITE BLOOD COUNT 9.3 10^3/uL (4.0-10.0)
[2025-01-08 15:47] LABS: ALBUMIN 4.2 G/DL (3.2-5.2); BILIRUBIN,TOTAL 0.6 MG/DL (0.3-1.2); CALCIUM LEVEL 9.3 MG/DL (8.3-10.6); CHOLESTEROL RISK RATIO 4.42 (<5); CREATININE FOR GFR 1.14 MG/DL (0.70-1.30); FERRITIN 300.4 NG/ML (10.5-307.3); FOLATE 16.9 NG/ML (>5.4); GLOMERULAR FILTRATION RATE 73.6 (>49); HDL CHOLESTEROL 49.5 MG/DL (>40); LDL CHOLESTEROL 133.7 MG/DL (<100); NON-HDL-C 169.5 MG/DL; PROSTATIC SPECIFIC AG MONITOR 0.96 NG/ML (< 4.00); TOTAL PROTEIN 7.4 G/DL (5.7-8.2)
[2025-01-08 16:32] LABS: HEMOGLOBIN A1c 5.6 % (4.0-6.0)
== END ==
LOC: M LABWUC 14:03
PROVIDERS: ATTEND Registered Nurse
DX: R73.03 Prediabetes (principal); Z79.899 Other long term (current) drug therapy; Z12.5 Encounter for screening for malignant neoplasm of prostate; D64.9 Anemia, unspecified; E78.00 Pure hypercholesterolemia, unspecified

== ENCOUNTER → 2025-02-11 | Outpatient (CLI) | payer OTHER ==
[~2025-02-11] MED LIST changes: +LIDO1ADH93 TD; -LIDO5DIS41 TD
[2025-02-11 12:57] LABS: AMORPHOUS SEDIMENT LARGE (NEGATIVE); APPEARANCE, URINE TURBID (CLEAR); BACTERIA, URINE AUTO NEGATIVE (NEGATIVE); BILIRUBIN, URINE AUTO NEGATIVE (NEGATIVE); BLOOD, URINE BLOOD NEGATIVE (NEGATIVE); COLOR, URINE AMBER (YELLOW); GLUCOSE, URINE (UA) AUTO NEGATIVE (NEGATIVE); KETONE, URINE AUTO NEGATIVE (NEGATIVE); LEUKOCYTE ESTERASE, URINE AUTO NEGATIVE (NEGATIVE); MUCUS, URINE SMALL (NEGATIVE); NITRITE, URINE AUTO NEGATIVE (NEGATIVE); PROTEIN, URINE AUTO NEGATIVE (NEGATIVE); RBC, URINE AUTO 0 /HPF (0-3); SPECIFIC GRAVITY URINE AUTO 1.026 (1.002-1.035); SQUAMOUS EPITHELIAL CELL UR AU 0 /HPF (0-6); UROBILINOGEN, URINE AUTO 0.2 mg/dL (0.0-2.0); WBC, URINE AUTO 0 /HPF (0-3)
[2025-02-11 13:05] LABS: BASO # 0.1 10^3/uL (0.0-0.2); BASO % 0.6 % (0.0-1.0); EOS # 0.1 10^3/uL (0.0-0.5); EOS % 1.4 % (0.0-3.0); HEMATOCRIT 40.6 % (42.0-52.0); HEMOGLOBIN 13.5 g/dl (13.5-17.5); LYMPH # 1.7 10^3/uL (1.5-5.0); LYMPH % 20.2 % (24.0-44.0); MEAN CORPUSCULAR HGB CONC 33.3 g/dl (32.0-36.5); MEAN CORPUSCULAR VOLUME 93.3 fl (80.0-96.0); MONO # 0.6 10^3/uL (0.0-0.8); MONO % 6.5 % (2.0-8.0); NEUTROPHILS # 6.1 10^3/uL (1.5-8.5); NEUTROPHILS % 70.9 % (36.0-66.0); PLATELET COUNT, AUTOMATED 240 10^3/uL (150-450); RED BLOOD COUNT 4.35 10^6/uL (4.30-6.10); WHITE BLOOD COUNT 8.6 10^3/uL (4.0-10.0)
[2025-02-11 13:26] LABS: HEMOGLOBIN A1c 5.9 % (4.0-6.0)
[2025-02-11 13:39] LABS: BILIRUBIN,TOTAL 0.7 MG/DL (0.3-1.2); CREATININE FOR GFR 1.03 MG/DL (0.70-1.30); GLOMERULAR FILTRATION RATE 82.6 (>49); POTASSIUM SERUM 4.2 MMOL/L (3.5-5.1); TOTAL PROTEIN 7.1 G/DL (5.7-8.2)
== END ==
LOC: M WUC 08:52
PROVIDERS: ATTEND Orthopaedic Surgery
DX: M25.512 Pain in left shoulder (principal)